=== PATIENT | male | born 1945 | race Caucasian/White ===

== ENCOUNTER 2018-07-07 23:23 | Inpatient (IN) ==
[2018-07-08] MEDS ORDERED: NORCO-7.5 PO ONE (00:18)
[2018-07-08 00:48] LABS: ALBUMIN 4.2 g/dL (3.5-5.0); CALCIUM 9.7 mg/dL (8.8-10.2); CREATININE 1.3 mg/dL (0.7-1.2); POTASSIUM 4.6 mmol/L (3.5-5.1); TOTAL BILIRUBIN 0.5 mg/dL (0.20-1.00)
[2018-07-08 00:56] LABS: BASO# 0.06 X1000 (0.0-0.2); BASO% 0.3 % (0.0-0.8); EOS% 0.5 % (0.0-10.0); HEMATOCRIT 45.6 % (42.0-52.0); HEMOGLOBIN 15.4 g/dL (14.0-18.0); IMM GRAN# 0.15 X1000 (0.0-0.04); IMM GRAN% 0.7 % (0.0-0.5); LYMPH# 10.24 X1000 (1.2-3.4); LYMPH% 47.3 % (20.5-51.1); MCH 32.6 PG (27-31); MCHC 33.8 g/dL (33-37); MCV 96.4 FL (81-99); MONO# 1.07 X1000 (0.11-0.59); MONO% 4.9 % (1.7-9.3); MPV 9.4 FL (7.4-10.4); NEUT# 10.05 X1000 (1.4-6.5); NEUT% 46.3 % (42.2-75.2); PLT 473 X1000 (130-400); RBC 4.73 XMIL (4.7-6.1); RDW 16.3 % (11.5-14.5); WBC 21.67 X1000 (4.8-10.8)
[2018-07-08] MEDS ORDERED: NS 1,000 ML IV ONE ×2 (01:04→04:37)
[2018-07-08] MEDS ORDERED: ROCEPHIN 1 GM in NS 50 ML IV ONE (03:01)
[2018-07-08] MEDS ORDERED: ZOFRAN ODT PO PRN (04:37)
--- NOTE | 2018-07-08 04:37 | PROVIDER DOCUMENTATION ---
This chart was entered by Jyothi Latham Scribe, acting as scribe for Guzman Bocanegra DO. HPI-Male Problem - General Chief Complaint: Flank Pain Stated Complaint: FLANK PAIN Time Seen by Provider: 07/07/18 23:31 Source: patient Allergies/Adverse Reactions: Patient Allergies Allergy/AdvReac Type Severity Reaction Status Date / Time Penicillins Allergy Mild ANAPHYLAXIS Verified 07/08/18 03:27 Home Medications: Home Medication List Medication Instructions Recorded Confirmed Last Taken Type Aspirin 81 mg PO DAILY 03/19/12 07/08/18 02/14/17 08:00 History Esomeprazole [Nexium] 40 mg PO DAILY 03/19/12 07/08/18 02/14/17 08:00 History Fenofibrate 160 mg PO DAILY 03/19/12 07/08/18 02/14/17 08:00 History Simvastatin 40 mg PO DAILY 03/19/12 07/08/18 02/14/17 08:00 History Albuterol Sulfate 2.5 mg IH BID 02/15/17 07/08/18 02/14/17 21:00 History Apixaban [Eliquis] 5 mg PO BID 02/15/17 07/08/18 02/14/17 08:00 History Arformoterol Neb [Brovana Neb] 15 microgm INH RTQ12H 02/15/17 07/08/18 02/14/17 21:00 History Budesonide 0.5 mg IH DAILY 02/15/17 07/08/18 02/14/17 17:00 History Digoxin 125 mcg PO QAM 02/15/17 07/08/18 02/14/17 08:00 History Fluticasone/Vilanterol [Breo 1 each IH DAILY 02/15/17 07/08/18 02/14/17 08:00 History Ellipta 200-25 Mcg INH] Furosemide [Lasix] 40 mg PO DAILY 02/15/17 07/08/18 02/14/17 08:00 History Tiotropium [place] Inhaler 18 mcg IH DAILY 30 Days #120 02/22/17 07/08/18 Unknow n Rx [Spiriva] inhaler Diltiazem HCl [Diltiazem 24Hr ER] 360 mg PO DAILY 05/15/18 07/08/18 Unknown History Losartan Potassium 100 mg PO DAILY 05/15/18 07/08/18 Unknown History Metoprolol [Lopressor] 50 mg PO DAILY 05/15/18 07/08/18 Unknown History Spironolactone 25 mg PO DAILY 05/15/18 07/08/18 Unknown History Albuterol Sulfate [Ventolin Hfa] 90 mcg INH DAILY 07/08/18 07/08/18 Unknown History Doxycycline Hyclate 100 mg PO DAILY 07/08/18 07/08/18 Unknown History Fluticasone/Vilanterol [Breo 200 mcg INH DAILY 07/08/18 07/08/18 Unknown History Ellipta 200-25 Mcg INH] Guaifenesin/Codeine Phosphate 118 ml PO DAILY 07/08/18 07/08/18 Unknown History [Virtussin AC Liquid] Thonzylamine/Phenylephrine/Dm 473 ml PO DAILY 07/08/18 07/08/18 Unknown History [Poly-Hist Dm Liquid] Tiotropium [place] Inhaler 18 mcg INH DAILY 07/08/18 07/08/18 Unknown History [Spiriva] - History of Present Illness-Male Nature of Presenting Problem: 72 yompresents to ED c/o left flank pain, since yesterday. Pt denies urinary p ain, nausea, vomiting or diarrhea. Pt has hx of HTN, Afib, GERD and COPD. Location of Complaint: reports: left flank Radiation: reports: none Quality of Pain: reports: aching Severity in ED: reports: moderate Onset/Duration: reports: 24 hours ago Timing: reports: still present Urinary Symptoms: reports: no symptoms Review of Systems - Adult - REVIEW OF SYSTEMS - ADULT Constitutional: reports: see HPI. denies: chills, fever, fatique Eyes: reports: no symptoms reported Ears, Nose, Mouth & Throat: reports: see HPI, hoarseness. denies: sinus problem, nose pain Cardiovascular: reports: no symptoms reported Respiratory: reports: no symptoms reported Gastrointestinal: reports: no symptoms reported Genitourinary: reports: see HPI, flank pain. denies: dysuria, urgency Musculoskeletal: reports: no symptoms reported Integumentary: reports: no symptoms reported Neurological: reports: no symptoms reported Psychiatric: reports: no symptoms reported Endocrine: reports: no symptoms reported Hematologic/Lymphatic: reports: no symptoms reported Allergic/Immunologic: reports: no symptoms reported All Other Systems: Reviewed and Negative Past History - Adult - PAST MEDICAL HISTORY-ADULT Review of Records: reports: Nursing Assessment Review, Medications Reviewed, Social history reviewed & non-contributory. Major Childhood Illnesses: reports: denies history Cardiovascular: reports: A-Fib, HTN, hyperlipidemia Respiratory: reports: COPD Gastrointestinal: reports: denies history Obstetrical/Gynecological: reports: denies history Genitourinary: reports: denies history Musculoskeletal: reports: arthritis Neurological: reports: denies history Psychiatric: reports: denies history Endocrine/Immune: reports: denies history Other Conditions: reports: denies history - PRIOR SURGERIES/PROCEDURES Surgical/Procedure History: reports: cholecystectomy - IMMUNIZATION STATUS Childhood Immunizations: See Nurse Assessment Flu Vaccine: See Nurse Assessment - FAMILY HISTORY Family History: reviewed, not pertinent - SOCIAL HISTORY Smoking: denies Physical Exam-General - PHYSICAL EXAM-ADULT Initial Vital Signs Reviewed: Yes - CONSTITUTIONAL General Appearance: appears well, alert. negative: anxious - EYES Eyes: PERRL/EOMI, pink conjunctivae. negative: photophobia - HEAD, EARS, NOSE, MOUTH & THROAT HENMT: moist mucous membranes, normal ENT inspection. negative: angioedema - NECK Neck: non-tender, full range of motion, supple, normal inspection. negative: Brudzinski's sign, carotid bruit - RESPIRATORY Respiratory: decreased breath sounds (bilaterally), crackles (left), wheezing (left) - CARDIOVASCULAR Cardiovascular: normal peripheral pulses, no edema, no gallop, no JVD, no murmur , irregularly irregular. negative: bradycardia, tachycardia - GASTROINTESTINAL (ABDOMEN) Abdominal Exam: normal bowel sounds, non tender, soft, no organomegaly. negative: rigid, rebound, tenderness - LYMPHATIC Lymphatic: no adenopathy. negative: striations - MUSCULOSKELETAL Back Exam: CVA tenderness (left), other (left flank pain) Extremity: normal range of motion, normal inspection. negative: deformity - SKIN Integumentary: normal color, normal turgor, warm/dry. 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 negative: facial droop, focal weakness - PSYCHIATRIC Psych/Mental Status: normal mood/affect, normal thought content, normal thought process, oriented x 3. negative: anxious Progress - PLAN OF CARE/RESULTS Progress/Plan/Lab Results: Vital Signs - 8 hr 07/07/18 23:28 Temperature 97.6 F Pulse Rate 90 Respiratory Rate 20 Blood Pressure 110/56 O2 Sat by Pulse Oximetry 94 L Laboratory Results - last 24 hr 07/08/18 07/08/18 07/08/18 00:07 00:07 00:07 WBC 21.67 H RBC 4.73 Hgb 15.4 Hct 45.6 MCV 96.4 MCH 32.6 H MCHC 33.8 RDW Std Deviation 16.3 H Plt Count 473 H MPV 9.4 Immature Gran % (Auto) 0.7 H Neut % (Auto) 46.3 Lymph % (Auto) 47.3 [place] % (Auto) 4.9 Eos % (Auto) 0.5 Baso % (Auto) 0.3 Immature Gran # (Auto) 0.15 H Neut # (Auto) 10.05 H Lymph # (Auto) 10.24 H [place] # (Auto) 1.07 H Eos # (Auto) 0.10 Baso # (Auto) 0.06 Sodium 135 L Potassium 4.6 Chloride 100 Carbon Dioxide 23 L Anion Gap 13 BUN 27 H Creatinine 1.3 H Estimated GFR/1.73 m2 54 BUN/Creatinine Ratio 21 Glucose 115 H Calculated Osmolality 276 Calcium 9.7 Total Bilirubin 0.50 AST 17 ALT 23 Alkaline Phosphatase 59 Total Protein 7.0 Albumin 4.2 Globulin 3.0 Albumin/Globulin Ratio 2.0 Monoscreen NEGATIVE Orders Category Date Time Status CHEST-PORTABLE [RAD] Stat Exams 07/08/18 03:[address] ABD/PELVIS W/IV CONT ONLY [CT] Stat Exams 07/08/18 01:05 Taken KUB ABDOMEN [RAD] Stat Exams 07/08/18 00:17 Taken LUMBAR SPINE 2-VIEWS [RAD] Stat Exams 07/08/18 00:17 Taken CBC WITH ELECTRONIC DIFF [HEME] Stat Lab 07/08/18 00:07 Completed COMPREHENSIVE METABOLIC PANEL [CHEM] Stat Lab 07/08/18 00:07 Completed MONO SCREEN [SERO] Stat Lab 07/08/18 00:07 Completed 0.9% Sodium Chloride Inj [Ns] 1,000 ml Med 07/08/18 01:04 Discontinued IV 999 mls/hr CefTRIAXONE [Rocephin] 1 gm Med 07/08/18 03:01 Discontinued 0.9% Sodium Chloride Inj [Ns] 50 ml IV NOW Hydrocodone/APAP 7.5 mg/325 mg [[place]-7.5] Med 07/08/18 00:18 Discontinued 1 each PO NOW ONE Result Diagrams: 07/08/18 00:07 07/08/18 00:07 - REASSESSMENT Reassessment #1 Status: improving (WITH NORCO 7.5 DISCUSSED LABS/CT-SCAN WITH PATIENT AND AGREES TO ADMISSION) - CONSULTS/PCP/HOSPITALIST Notification #1 *Consult/PCP/Hospitalist*: DR BARONE Time Discussed: 04:31 Departure - Departure Date of Disposition Decision: 07/08/18 Time of Disposition Decision: 04:32 DIAGNOSIS: Abdominal wall mass of left flank, Diverticulosis of colon, DJD (degenerative joint disease), lumbosacral, Atrial fibrillation, chronic, COPD with exacerbation Leukocytosis Qualifiers: Leukocytosis type: lymphocytosis Qualified Code(s): D72.820 - Lymphocytosis (symptomatic) Disposition: ADMITTED INPATIENT 09 Certified Medical Emergency: Emergent Condition: Stable Referrals and Follow-Ups: Ja Chan DO [Primary Care Provider] - - Critical Care Note This patient required my direct & personal management of CC.: No Attestation - Physician/ CECIL Attestation Patient care was provided by Advanced Practice Provider:: No The physician spent face to face time with patient:: Yes Advanced Practice Provider documentation review:: Supervising physician onsite and consulted in the evaluation and care of this patient. The physician did have a face to face encounter with the patient. This chart was documented by the indicated scribe, (Jyothi Latham Scribe) and accurately reflects the services I performed and decisions made by , Guzman Bocanegra DO, as attested by the provider's signature.
[2018-07-08] MEDS: DUONEB (A & A) INH SCH ×4 (06:06→21:00)
--- NOTE | 2018-07-08 07:11 | Diag Imaging Result Doc PS360 ---
US SPLEEN (LIMITED) - 07/08/2018 INDICATION: SPLENIC MASS ON CT-SCAN TECHNIQUE: COMPARISON: CT abdomen and pelvis with contrast from earlier 07/08/2018 FINDINGS: There is a questionable 3 cm hypoechoic mass of the lower pole of the spleen. No fluid collections. The spleen measures 9.5 x 9.3 x 3.3 cm. No abnormal fluid collections. IMPRESSION: Questionable hypoechoic splenic mass. Electronically signed by Edward Varela 07/08/2018 7:08 AM
--- NOTE | 2018-07-08 07:17 | Diag Imaging Result Doc PS360 ---
CT ABD/PELVIS W/IV CONT ONLY - 07/08/2018 INDICATION: ABD PAIN 21K WBS COMPARISON: 04/19/2017 FINDINGS: The lung bases are clear and the heart size is normal. There are cholecystectomy clips. There has been slight decrease in size of a hypoenhancing mass in the lower pole of the spleen. This previously measured about 4.7 cm and now measures about 4 cm. This was also present in 2016 and 2011, although the apparent size has fluctuated from 3.1 to 4.7 cm. Stable bulkiness of the adrenal glands. Stable diverticulosis of the colon. No bowel obstruction or inflammation. Urinary bladder, prostate, and rectum are normal. Stable vascular disease of the aorta and its pelvic branches. There are moderate degenerative changes of the spine. No acute or suspicious bony lesion. IMPRESSION: 1. 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 On the follow-up ultrasound this was subtle and hypoechoic. Most likely a benign density such as a hemangioma. 2. Otherwise no acute process or change from prior exams. This exam was performed using automated exposure control, adjustment of mA or kV according to patient size, and/or use of iterative reconstruction technique Electronically signed by Edward Varela 07/08/2018 7:15 AM
--- NOTE | 2018-07-08 07:18 | Diag Imaging Result Doc PS360 ---
KUB ABDOMEN - 07/08/2018 INDICATION: PAIN COMPARISON: 02/21/2017 FINDINGS: There is a nonobstructive bowel gas pattern. No free air or abdominal calcifications. There are stable surgical clips in the right upper quadrant. No constipation. IMPRESSION: No acute disease. Electronically signed by Edward Varela 07/08/2018 7:16 AM
--- NOTE | 2018-07-08 07:19 | Diag Imaging Result Doc PS360 ---
LUMBAR SPINE 2-VIEWS - 07/08/2018 INDICATION: PAIN TECHNIQUE: COMPARISON: None FINDINGS: Alignment is anatomic. No fracture or subluxation. There is advanced spondylosis throughout the thoracic and lumbar spine. There is advanced degeneration of the sacroiliac joints. There is advanced vascular calcification of the abdominal aorta. IMPRESSION: Advanced chronic changes. No fracture or subluxation. Electronically signed by Edward Varela 07/08/2018 7:17 AM
--- NOTE | 2018-07-08 07:44 | Diag Imaging Result Doc PS360 ---
CHEST-PORTABLE - 07/08/2018 INDICATION: COUGH COMPARISON: 05/17/2018 FINDINGS: The lungs are normally expanded and clear. Heart size and mediastinal contours are normal. No pneumothorax or pleural effusion. IMPRESSION: Negative exam. Electronically signed by Edward Varela 07/08/2018 7:41 AM
[2018-07-08] MEDS: NORCO-7.5 PO PRN ×2 (09:54→18:55)
--- NOTE | 2018-07-08 14:59 | Diag Imaging Result Doc PS360 ---
FOOT COMPLETE LEFT - 07/08/2018 INDICATION: pain, redness TECHNIQUE: Three views COMPARISON: None FINDINGS: Bones are intact and normally aligned. There are advanced degenerative changes at the mid tarsal joints, and the base of the great toe. No fractures or bony erosions. There is significant pedal edema about the ankle and foot, mainly at the forefoot. No soft tissue gas. IMPRESSION: Nonspecific findings. Electronically signed by Edward Varela 07/08/2018 2:56 PM
--- NOTE | 2018-07-08 15:38 | HISTORY AND PHYSICAL ---
CHIEF COMPLAINT: Left flank pain. HISTORY OF PRESENT ILLNESS: This is a 72-year-old gentleman who presented to the emergency room complaining of left-sided back pain. He states the pain was a 10/10 on sitting or lying but with standing the pain does relieve. He does state that he has a history of chronic back pain having multiple surgeries, although this pain does feel different. He denied any fevers or chills, nausea, vomiting, diarrhea, any hematuria, dysuria. Mr. Kowalski states that he has felt bad over the last 6 weeks or so. He was hospitalized from May 15 to May 18 with E coli UTI and a COPD exacerbation. He stated that on discharge from the hospital he did feel somewhat better although over the last month he has had generalized weakness, sore throat, generalized body aches for which he has been treated with 7 days of Keflex, 7 days of doxycycline with no change in symptoms. He was found to have a white count of 21.6. He is afebrile. PAST MEDICAL HISTORY: Atrial fibrillation, hypertension, hyperlipidemia, COPD, arthritis. PAST SURGICAL HISTORY: Cholecystectomy. SOCIAL HISTORY: He denies alcohol, tobacco, or illicit drug use. ALLERGIES: Penicillin. HOME MEDICATIONS: A list will be obtained by the nursing staff and once verified will review and restart as appropriate. REVIEW OF SYSTEMS: Discussed with patient with pertinent positives stated in the HPI. He denied any syncope or dizziness, any chest pain, palpitations, shortness of breath, cough, fever, chills, any nausea, vomiting, diarrhea, constipation, black or bloody vomitus or stools, any hematuria, dysuria, frequency, urgency. PHYSICAL EXAMINATION: GENERAL: This is a 72-year-old gentleman who is lying in the bed in no distress. VITAL SIGNS: Blood pressure is 111/51 with a heart rate of 72, respirations are 18, temperature is 97.5 degrees oral with O2 saturation 96-99% on 2 L nasal cannula. HEENT: Head is normocephalic, atraumatic. Mucous membranes are moist. NECK: Supple. Trachea midline. CARDIOVASCULAR: Regular rate and rhythm. S1 and S2 appreciated. CARDIOVASCULAR: Irregularly irregular rate and rhythm. S1, S2 appreciated. No murmur. He has bilateral lower extremity edema 2 to 3+ pitting, has signs of venous stasis on bilateral shins with peripheral pulses palpable x4 extremities, calves are nontender to palpation. GASTROINTESTINAL: Soft, nontender, nondistended. Bowel sounds in all 4 quadrants. PULMONARY: Breath sounds are unlabored. He does have some expiratory wheezing throughout. Chest rises and falls symmetric respiration. NEUROLOGIC: He is alert, oriented x3. SKIN: Warm and dry. ASSESSMENT AND PLAN: 1. Chronic obstructive pulmonary disease acute exacerbation. He will be given supplemental oxygen with DuoNeb q.4 hours with q.2 hours p.r.n., use steroids to taper. 2. Leukocytosis. The patient has been on antibiotics twice in the last 20 days. We will go ahead and draw blood cultures x2. Will obtain a urine culture as well as urinalysis. 3. Hypertension. Will identify his home medications and continue these as appropriate. 4. Acute kidney injury. We will gently hydrate and follow labs. 5. Left great toe pain, redness. The patient states that he has had left great toe and foot pain for the last week or 2 that has been increasing. He does have thickened nails. He does have redness noted to his left great toe as well as the tip just around the nail of his second toe. We will obtain an x-ray. 6. Splenic mass. In review of the patient's prior CT scans the patient had a hypoenhancing mass in the lower pole the spleen that was present in 2017 as well as 2011 with a size being 4.7 cm 2017 and 4 cm today. Followup ultrasound today reveals a hypoechoic mass that according to radiology is most likely benign density such as hemangioma. Dictated by HUMAIRA Thomas for Terence Pozo MD cc: HUMAIRA Thomas MD
[2018-07-08 16:23] LABS: URINE SOURCE VOIDED
[2018-07-08 16:27] LABS: BILIRUBIN URINE NEGATIVE (NEGATIVE); BLOOD URINE 4+ (NEGATIVE); CLARITY CLEAR (CLEAR); COLOR YELLOW; GLUCOSE URINE NEGATIVE (NEGATIVE); KETONE URINE NEGATIVE (NEGATIVE); LEUKOCYTES URINE NEGATIVE (NEGATIVE); NITRITE URINE NEGATIVE (NEGATIVE); PROTEIN URINE NEGATIVE (NEGATIVE); UROBILINOGEN URINE NORMAL
[2018-07-08 16:32] LABS: URINE RBC 20-40 /HPF (<10); URINE WBC <10 /HPF (<10)
[2018-07-08 16:33] LABS: URINE BACTERIA 1+ /HFP; URINE CAST NONE SEEN /LPF; URINE CRYSTAL NONE SEEN /HPF; URINE EPITHELIAL CELLS >10 /HPF (<10); URINE SMALL ROUND CELLS RENAL PRESENT; URINE YEAST NONE SEEN /HPF
--- NOTE | 2018-07-08 18:38 | HISTORY AND PHYSICAL ---
SUBJECTIVE: Patient seen and examined, presented the hospital with flank pain, now he is complaining of back pain. Patient unfortunately is extremely poor historian. He denies any shortness of breath currently. He is actually denying any flank pain. Points to his low back area where he has had 14 previous surgeries per the patient. Will admit patient the hospital due to his white count being elevated at 21, will observe. He did have a splenic mass that has been present for years and will follow. cc: Terence Pozo MD
[2018-07-08] MEDS: CARDIZEM CD PO SCH (18:49)
[2018-07-08] MEDS: ZOCOR PO SCH (18:49)
[2018-07-08] MEDS: LANOXIN PO SCH (18:49)
[2018-07-08] MEDS: LASIX PO SCH (18:49)
[2018-07-08] MEDS: LOPRESSOR PO SCH (18:49)
[2018-07-08] MEDS: ELIQUIS PO SCH (20:04)
[2018-07-09] MEDS: DUONEB (A & A) INH SCH ×4 (04:10→22:01)
[2018-07-09 07:03] LABS: HEMATOCRIT 45.3 % (42.0-52.0); MCH 31.9 PG (27-31); MCHC 33.1 g/dL (33-37); MCV 96.4 FL (81-99); MPV 9.6 FL (7.4-10.4); RBC 4.7 XMIL (4.7-6.1); RDW 16.1 % (11.5-14.5); WBC 17.4 X1000 (4.8-10.8)
[2018-07-09 07:36] LABS: AGAP 13; ALBUMIN 3.9 g/dL (3.5-5.0); ALKALINE PHOSPHATASE 44 U/L (32-122); BUN 18 mg/dL (8-22); CALCIUM 9.2 mg/dL (8.8-10.2); CHLORIDE 101 mmol/L (98-107); COSMO 278; ESTIMATED GFR > 60; GLUCOSE 99 mg/dL (70-104); GOT 20 U/L (10-34); GPT 21 U/L (10-44); MAGNESIUM 1.9 mg/dL (1.5-2.7); POTASSIUM 4.1 mmol/L (3.5-5.1); SODIUM 138 mmol/L (136-145); TCO2 24 mmol/L (25-35); TOTAL PROTEIN 6.6 g/dL (6.3-8.3)
[2018-07-09] MEDS ORDERED: LOFIBRA PO SCH (09:00)
[2018-07-09] MEDS: ELIQUIS PO SCH ×2 (09:20→20:05)
[2018-07-09] MEDS: CARDIZEM CD PO SCH (09:20)
[2018-07-09] MEDS: LANOXIN PO SCH (09:20)
[2018-07-09] MEDS: TRICOR PO SCH (09:20)
[2018-07-09] MEDS: LOPRESSOR PO SCH (09:22)
[2018-07-09] MEDS: COZAAR PO SCH (09:22)
[2018-07-09] MEDS: LASIX PO SCH (09:22)
[2018-07-09] MEDS: ZOCOR PO SCH (09:22)
[2018-07-09] MEDS: ASPIRIN PO SCH (09:22)
[2018-07-09] MEDS: NEXIUM PO SCH (09:22)
[2018-07-09] MEDS: ROCEPHIN 1 GM in NS 50 ML IV SCH (09:23)
[2018-07-09] MEDS: BREO ELLIPTA 200/25 MCG INH INH SCH (11:08)
[2018-07-09] MEDS: LASIX IV SCH ×2 (12:09→22:07)
--- NOTE | 2018-07-09 18:02 | PROGRESS NOTE ---
DATE: 07/09/2018 SUBJECTIVE: Patient notes overall he is feeling better. Denies any fevers or chills. Denies cough, congestion, or shortness of breath. States he has swelling in his lower extremities, but after I asked. He notes the swelling has been there for years. PHYSICAL EXAMINATION: Vital Signs: Temperature 97.4 degrees, pulse 67, respiratory rate 18, BP 119/57. General: Patient is awake, alert, currently in no distress. HEENT: Normocephalic, atraumatic. Neck: Supple. Cardiovascular: Regular rate. Chest: Clear. No crackles, no wheezing. Abdomen: Soft, nondistended, nontender. Extremities: Moves all extremities. 1+ edema in bilateral lower extremities. ASSESSMENT: 1. Chronic obstructive pulmonary disease with mild exacerbation. 2. Leukocytosis, improved. White count is down from 21 to 17. 3. Edema. We will continue Lasix. The patient certainly should consider lymphedema treatment as an outpatient. 4. Hypertension. 5. Acute kidney injury, resolved. 6. Acute hepatitis. AST and ALT both appear to be trending down. 7. Splenic mass, that is unchanged from 2017 and also appears in 2012. PLAN: Hopefully, the patient can discharge home over the next few days. We will continue to wean and follow clinical course. cc: Terence Pozo MD
[2018-07-09] MEDS ORDERED: DUONEB (A & A) ONE (18:09)
[2018-07-09] MEDS: ROBITUSSIN-DM PO PRN (18:59)
[2018-07-10] MEDS: DUONEB (A & A) INH SCH ×4 (03:14→21:36)
[2018-07-10] MEDS ORDERED: NS 50 ML ONE (06:07)
[2018-07-10 06:59] LABS: HEMATOCRIT 45.2 % (42.0-52.0); HEMOGLOBIN 15.4 g/dL (14.0-18.0); MCH 32.4 PG (27-31); MCHC 34.1 g/dL (33-37); MCV 95.2 FL (81-99); MPV 9.5 FL (7.4-10.4); RBC 4.75 XMIL (4.7-6.1); RDW 15.8 % (11.5-14.5); WBC 18.34 X1000 (4.8-10.8)
[2018-07-10 07:44] LABS: ALBUMIN 4.1 g/dL (3.5-5.0); CALCIUM 9.4 mg/dL (8.8-10.2); CREATININE 1.4 mg/dL (0.7-1.2); MAGNESIUM 1.8 mg/dL (1.5-2.7); POTASSIUM 4.2 mmol/L (3.5-5.1); TOTAL BILIRUBIN 0.6 mg/dL (0.20-1.00); TOTAL PROTEIN 6.9 g/dL (6.3-8.3)
[2018-07-10] MEDS: BREO ELLIPTA 200/25 MCG INH INH SCH (07:58)
[2018-07-10] MEDS: ROCEPHIN 1 GM in NS 50 ML IV SCH (08:22)
[2018-07-10] MEDS: CARDIZEM CD PO SCH (08:23)
[2018-07-10] MEDS: LANOXIN PO SCH (08:23)
[2018-07-10] MEDS: ELIQUIS PO SCH ×2 (08:23→20:06)
[2018-07-10] MEDS: COZAAR PO SCH (08:23)
[2018-07-10] MEDS: LOPRESSOR PO SCH (08:23)
[2018-07-10] MEDS: TRICOR PO SCH (08:23)
[2018-07-10] MEDS: ZOCOR PO SCH (08:23)
[2018-07-10] MEDS: NEXIUM PO SCH (08:23)
[2018-07-10] MEDS: ASPIRIN PO SCH (08:24)
[2018-07-10] MEDS ORDERED: NS 500 ML IV ONE (10:17)
--- NOTE | 2018-07-10 11:02 | PROGRESS NOTE ---
DATE: 07/10/2018 SUBJECTIVE: Patient is sitting up in bedside chair, talking with family member. No complaints voiced at this time. OBJECTIVE: Vital signs: Temperature 98.1 degrees, pulse 80, respirations 18, blood pressure 116/59, saturating 97% on 3 L via nasal cannula. HEMNT: Normocephalic, atraumatic. Normal ENT inspection. Oropharynx and nares are clear. Eyes: Pupils are equal, round, and reactive to light and accommodation. Neck: Normal inspection. Normal range of motion. Lungs were clear to auscultation bilaterally with equal lung expansion and chest wall movement. Heart: Regular rate and rhythm. No murmurs, rubs, or gallops. Abdomen: Soft, nontender, nondistended. Bowel sounds are present x4 quadrants. Musculoskeletal: Moves all extremities. He is noted to have 2+ pitting edema in bilateral lower extremities. LABORATORY DATA: White blood cell count of 18.34, hemoglobin 15.4, hematocrit 45.2, platelets 389,000. Sodium 136, potassium 4.2, chloride 98, CO2 of 23, BUN of 28, creatinine 1.4, glucose 122. ASSESSMENT: 1. Chronic obstructive pulmonary disease with mild exacerbation. 2. Leukocytosis. 3. Acute kidney injury. 4. Bilateral lower extremity edema. 5. Hypertension. PLAN: We were giving the patient some Lasix IV twice daily for 3 days, but it has worsened his kidney function so we are going to stop that. We will place him on a 500 mL bolus of normal saline x1 bag, start him back on his p.o. Lasix at 40 mg daily starting tomorrow. Encourage patient to keep bilateral lower extremities elevated as much as possible. There certainly could possibly be a lymphedema issue going on that could be worked up outpatient. We will continue his IV antibiotic. His white count had a little slight bump in it from 17.40 yesterday to 18.34. Tomorrow, we will recheck a CBC, BMP in the a.m. and hopefully discharge in the next 1 to 2 days. Dictated by HUMAIRA Hayward for Patrice Cordero MD Addendum: Patient seen and examined by myself. Agree with HUMAIRA note. It reflects my assessment and plan. Patient is feeling better. Will check BMP tomorrow. Will see how he does with Lasix. cc: HUMAIRA Hayward MD [facility]
--- NOTE | 2018-07-10 13:17 | EKG Report ---
Test Performed on : 07/10/2018 11:59:51 AM Test Reason : 2 second pause on tele. Blood Pressure : / mmHG Vent. Rate : 078 BPM Atrial Rate : 300 BPM P-R Int : 000 ms QRS Dur : 082 ms QT Int : 326 ms P-R-T Axes : 000 065 235 degrees QTc Int : 371 ms Atrial fibrillation. Cannot rule out Inferior infarct , age undetermined Abnormal ECG When compared with ECG of 15-MAY-2018 03:43, QRS duration has increased ST no longer elevated in Inferior leads Inverted T waves have replaced nonspecific T wave abnormality in Inferior leads Confirmed by Dave Strickland MD ([id number]) on 07/16/2018 2:06:18 PM
[2018-07-11] MEDS: DUONEB (A & A) INH SCH ×4 (03:13→22:09)
[2018-07-11 07:40] LABS: BASO# 0.04 X1000 (0.0-0.2); BASO% 0.3 % (0.0-0.8); EOS# 0.15 X1000 (0.0-0.7); HEMATOCRIT 40.8 % (42.0-52.0); HEMOGLOBIN 13.8 g/dL (14.0-18.0); IMM GRAN# 0.06 X1000 (0.0-0.04); IMM GRAN% 0.4 % (0.0-0.5); LYMPH% 40.6 % (20.5-51.1); MCH 32.5 PG (27-31); MCHC 33.8 g/dL (33-37); MCV 96.2 FL (81-99); MPV 9.6 FL (7.4-10.4); NEUT# 7.79 X1000 (1.4-6.5); NEUT% 51.7 % (42.2-75.2); PLT 370 X1000 (130-400); RBC 4.24 XMIL (4.7-6.1); RDW 15.6 % (11.5-14.5); WBC 15.04 X1000 (4.8-10.8)
[2018-07-11 07:51] LABS: AGAP 10; BUN 26 mg/dL (8-22); CALCIUM 9.2 mg/dL (8.8-10.2); CHLORIDE 101 mmol/L (98-107); COSMO 279; CREATININE 1.1 mg/dL (0.7-1.2); ESTIMATED GFR > 60; GLUCOSE 115 mg/dL (70-104); POTASSIUM 4.3 mmol/L (3.5-5.1); SODIUM 137 mmol/L (136-145); TCO2 26 mmol/L (25-35)
[2018-07-11] MEDS: BREO ELLIPTA 200/25 MCG INH INH SCH (08:20)
[2018-07-11] MEDS ORDERED: LASIX LIQUID PO SCH (09:00)
[2018-07-11] MEDS: CARDIZEM CD PO SCH (09:04)
[2018-07-11] MEDS: LOPRESSOR PO SCH (09:04)
[2018-07-11] MEDS: ROCEPHIN 1 GM in NS 50 ML IV SCH (09:04)
[2018-07-11] MEDS: ELIQUIS PO SCH ×2 (09:05→20:22)
[2018-07-11] MEDS: LANOXIN PO SCH (09:05)
[2018-07-11] MEDS: TRICOR PO SCH (09:05)
[2018-07-11] MEDS: NEXIUM PO SCH (09:05)
[2018-07-11] MEDS: LASIX PO SCH (09:05)
[2018-07-11] MEDS: ZOCOR PO SCH (09:05)
[2018-07-11] MEDS: ASPIRIN PO SCH (09:05)
--- NOTE | 2018-07-11 11:11 | PROGRESS NOTE ---
DATE: 07/11/2018 SUBJECTIVE: Patient reports feeling better. He is sitting in the chair. Reports less lower extremity swelling. OBJECTIVE: Vital Signs: Temperature degrees 97.6, heart rate 80, respiratory rate 18, blood pressure 129/49. O2 saturation 100% 3 L nasal cannula. General Examination: This is a chronically ill-appearing, 72-year-old male, lying in bed, in no acute distress. HEENT: Head is normocephalic. Atraumatic. Mucous membranes dry. Neck: No JVD noted. No carotid bruits. No lymphadenopathy. No thyromegaly. Cardiovascular: S1, S2 heard. No murmurs, gallops, or rubs. Regular rate and rhythm. Respiratory: Clear bilaterally to auscultation. No work of breathing or using accessory muscles. Abdomen: Soft, nontender to palpation. Bowel sounds present. No organomegaly. Extremities: 2+ pitting edema in both lower extremities up to the mid part of both legs. Neurological: Patient alert oriented x3. Moves 4 extremities. LABORATORY DATA: White cell count 15.04, hemoglobin 13.8, hematocrit 40.8, platelets 370,000. Normal BMP. ASSESSMENT AND PLAN: 1. Chronic obstructive pulmonary disease with mild exacerbation. Patient is breathing better. He is using 3 L of oxygen here in the hospital. That is basically what he uses at home. We will continue with breathing treatments. We will continue with same management. 2. Leukocytosis, most likely related to IV steroids. Those are getting better. We have to stop intravenous steroids. 3. Acute kidney injury, resolved. 4. Bilateral lower extremity edema. Patient is on Lasix. We will continue with the same management. 5. Hypertension. Blood pressure is under control. We will continue with the same medication. DISPOSITION: I think this patient continues to improve. The white cell count is close to normal and renal function continues to be stable. He can be discharged tomorrow. Patient requests at discharge to be arranged with home health services. We will honor his wishes. cc: Patrice Cordero MD
[2018-07-11] MEDS: ROBITUSSIN-DM PO PRN (13:23)
[2018-07-12] MEDS: DUONEB (A & A) INH SCH ×2 (03:05→11:21)
[2018-07-12 05:52] VITALS: BP 101/50
[2018-07-12 06:55] LABS: BASO# 0.05 X1000 (0.0-0.2); BASO% 0.3 % (0.0-0.8); EOS# 0.16 X1000 (0.0-0.7); HEMATOCRIT 44.1 % (42.0-52.0); HEMOGLOBIN 14.5 g/dL (14.0-18.0); IMM GRAN% 0.6 % (0.0-0.5); LYMPH% 41.6 % (20.5-51.1); MCH 31.7 PG (27-31); MCHC 32.9 g/dL (33-37); MCV 96.5 FL (81-99); MONO# 0.88 X1000 (0.11-0.59); MONO% 5.4 % (1.7-9.3); MPV 9.7 FL (7.4-10.4); NEUT# 8.34 X1000 (1.4-6.5); NEUT% 51.1 % (42.2-75.2); PLT 385 X1000 (130-400); RBC 4.57 XMIL (4.7-6.1); RDW 15.4 % (11.5-14.5); WBC 16.33 X1000 (4.8-10.8)
[2018-07-12 07:42] LABS: AGAP 12; BUN 25 mg/dL (8-22); CALCIUM 9.5 mg/dL (8.8-10.2); CHLORIDE 99 mmol/L (98-107); COSMO 275; CREATININE 1.1 mg/dL (0.7-1.2); ESTIMATED GFR > 60; GLUCOSE 108 mg/dL (70-104); POTASSIUM 4.4 mmol/L (3.5-5.1); SODIUM 135 mmol/L (136-145); TCO2 24 mmol/L (25-35)
[2018-07-12] MEDS: BREO ELLIPTA 200/25 MCG INH INH SCH (07:49)
[2018-07-12] MEDS: TRICOR PO SCH (09:20)
[2018-07-12] MEDS: CARDIZEM CD PO SCH (09:20)
[2018-07-12] MEDS: LANOXIN PO SCH (09:20)
[2018-07-12] MEDS: NEXIUM PO SCH (09:20)
[2018-07-12] MEDS: ZOCOR PO SCH (09:20)
[2018-07-12] MEDS: LASIX PO SCH (09:20)
[2018-07-12] MEDS: ELIQUIS PO SCH (09:20)
[2018-07-12] MEDS: ASPIRIN PO SCH (09:21)
[2018-07-12] MEDS: ROCEPHIN 1 GM in NS 50 ML IV SCH (09:21)
[2018-07-12] MEDS: LOPRESSOR PO SCH (09:25)
--- NOTE | 2018-07-12 15:17 | DISCHARGE SUMMARY ---
ADMISSION DATE: 07/08/2018 DISCHARGE DATE: 07/12/2018 PRIMARY CARE PHYSICIAN: Dr. Chan. ADMISSION DIAGNOSES: 1. An acute chronic obstructive pulmonary disease exacerbation. 2. Leukocytosis. 3. Hypertension. 4. Acute kidney injury. 5. Left great toe pain with redness. 6. A splenic mass. DISCHARGE DIAGNOSES: 1. Mild exacerbation of chronic obstructive pulmonary disease. 2. Leukocytosis, most likely secondary to steroids. 3. Bilateral lower extremity edema. 4. Hypertension. SUMMARY OF FINDINGS: This is a 72-year-old male who presented to the emergency room with left- sided back pain that he rated at 10/10 when he is sitting or lying, but standing relieved the pain. Stated he had felt bad over the last 6 weeks and had been hospitalized from May 15 to May 18 with an E coli UTI and COPD exacerbation that he felt better when he was discharged, but over the last month had had generalized weakness and sore throat, generalized body aches for which he had been treated for 7 days with Keflex and doxycycline. Was found to have a white count of 21.6 and was afebrile. He was placed on IV antibiotics, a steroid taper. He is using 3 L of oxygen, which is what he uses at home. We continued his breathing treatments, placed him on his Lasix, encouraged him to keep his legs elevated and is now felt that he can safely be discharged home. DISCHARGE MEDICATIONS: Include: 1. Eliquis 5 mg p.o. b.i.d. 2. Aspirin 81 mg p.o. daily. 3. Digoxin 125 mcg p.o. q.a.m. 4. Cardizem 360 mg p.o. daily. 5. Nexium 40 mg p.o. daily. 6. Fenofibrate 160 mg p.o. daily. 7. Breo Ellipta 200/25 mcg inhalation daily. 8. Lasix 40 mg p.o. daily, #30 with no refill. 9. [place] 7.5 one p.o. q.6 hours p.r.n., #20 with no refill. 10. Metoprolol 50 mg p.o. daily. 11. Simvastatin 40 mg p.o. daily. 12. Albuterol nebulizer b.i.d. 13. Brovana nebulizer q.12. 14. Cefdinir 300 mg p.o. daily, #20 with no refill. 15. Lasix 40 mg p.o. daily. 16. Robitussin DM 10 mL p.o. q.4 hours p.r.n. 17. Potassium 100 mg p.o. daily. FOLLOWUP: He will need to follow up with his primary care physician on 07/19/2018 at 10:30 a.m. TIME SPENT: 35 minutes. HUMAIRA Hayward, dictating for Dr. Robledo. Dictated by HUMAIRA Hayward for Patrice Cordero MD Addendum: Patient seen and examined by myself. Agree with HUMAIRA note. It reflects my assessment and plan. Patient is being discharged from hospital in stable condition. cc: HUMAIRA Hayward MD Joseph R. Dupper, ELSIEM DO CHRIS Byers
== END 2018-07-12 13:45 | disposition home or self-care (01) | DRG 815 ==
LOC: P.ED 23:23 → P.MEDSURG 07-08 05:09 → SUATTDRO 07-08 05:09
PROVIDERS: ATTEND Internal Medicine
CPT/HCPCS: 36415; 71010; 71045; 72100; 73630; 74000; 74018; 74177; 76705; 80048; 80053; 81001; 82948; 83735; 85025; 85027; 86308; 87040; 87088; 93005; 93010; 94640; 94761; 96361; 96365; 97163; 99285; A9270; J0696; J1940; J7030; J7040; Q9967; XXXXX

== ENCOUNTER 2019-01-28 23:17 | Inpatient (IN) ==
[2019-01-28] MEDS ORDERED: CARDIZEM ONE (23:48)
[2019-01-28] MEDS ORDERED: NS 1,000 ML IV ONE (23:53)
[2019-01-29 00:11] LABS: INFLUENZA A NEGATIVE (NEGATIVE); INFLUENZA B NEGATIVE (NEGATIVE)
[2019-01-29 00:11] LABS: BASO# 0.02 X1000 (0.0-0.2); BASO% 0.1 % (0.0-0.8); HEMATOCRIT 44.8 % (42.0-52.0); HEMOGLOBIN 14.8 g/dL (14.0-18.0); IMM GRAN# 0.17 X1000 (0.0-0.04); IMM GRAN% 0.6 % (0.0-0.5); LYMPH# 5.96 X1000 (1.2-3.4); LYMPH% 22.1 % (20.5-51.1); MCH 30.8 PG (27-31); MCV 93.1 FL (81-99); MONO# 0.28 X1000 (0.11-0.59); MPV 9.6 FL (7.4-10.4); NEUT# 20.55 X1000 (1.4-6.5); NEUT% 76.2 % (42.2-75.2); PLT 434 X1000 (130-400); RBC 4.81 XMIL (4.7-6.1); RDW 15.2 % (11.5-14.5); WBC 26.98 X1000 (4.8-10.8)
[2019-01-29] MEDS ORDERED: MAXIPIME 2 GM in NS 100 ML IV ONE (00:14)
[2019-01-29] MEDS ORDERED: NS 500 ML IV ONE (00:14)
[2019-01-29] MEDS ORDERED: NS 1,000 ML IV ONE ×2 (00:14→03:15)
[2019-01-29] MEDS ORDERED: VANCOMYCIN 1 GM/NS 1 GM/250 ML IVPB IV ONE (00:14)
[2019-01-29 00:22] LABS: INR 1.39; PROTIME 17.8 Seconds (11.0-16.0)
[2019-01-29 00:23] LABS: PTT 31.8 Seconds (22.3-41.8)
[2019-01-29 00:26] LABS: CREATININE 1.3 mg/dL (0.7-1.2); POTASSIUM 4.8 mmol/L (3.5-5.1); TOTAL BILIRUBIN 1.3 mg/dL (0.20-1.00)
[2019-01-29 00:27] LABS: BLOOD TYPE ARTERIAL; HCO3-(ACT) 23.2 mmoll (20.0-26.0); METHB 1.3 % (0.0-1.5); O2(CT) 18.5 mL/dL (15.0-23.0); O2HB 92.5 % (95.0-99.0); PCO2(98.6) 25 mmHg (35-45); PO2(98.6) 67 mmHg (60-100); SAMPLE BLOOD; SAO2 96.3 % (95.0-100.0); THB 14.2 g/dL (11.5-17.4)
[2019-01-29 00:29] LABS: ALLEN TEST YES; MODALITY CANNULA
[2019-01-29 00:34] LABS: BILIRUBIN URINE NEGATIVE (NEGATIVE); BLOOD URINE 1+ (NEGATIVE); CLARITY CLEAR (CLEAR); COLOR ORANGE; GLUCOSE URINE NEGATIVE (NEGATIVE); KETONE URINE TRACE mg/dL (NEGATIVE); LEUKOCYTES URINE TRACE (NEGATIVE); NITRITE URINE NEGATIVE (NEGATIVE); PROTEIN URINE TRACE mg/dL (NEGATIVE); UROBILINOGEN URINE 1 mg/dL
[2019-01-29 00:39] LABS: BANDS 9 % (0-1); LYMPHS 19 % (21-51); SEGS 68 % (42-75)
[2019-01-29 00:40] LABS: POIKILOCYTOSIS OCCASIONAL; POLYCHROM OCCASIONAL; STOMATOCYTES OCCASIONAL; TARGET CELLS OCCASIONAL
[2019-01-29 00:42] LABS: URINE WBC <10 /HPF (<10)
[2019-01-29 00:43] LABS: URINE BACTERIA 4+ /HFP; URINE EPITHELIAL CELLS <10 /HPF (<10); URINE RBC <10 /HPF (<10)
[2019-01-29 00:44] LABS: URINE SMALL ROUND CELLS RENAL PRESENT; URINE SOURCE CLEAN CATCH
--- NOTE | 2019-01-29 01:02 | PROVIDER DOCUMENTATION ---
This chart was entered by Karina Kwan Scribe, acting as scribe for Stanford Tavares MD. HPI-Abdominal Pain/GI Problem - General Chief Complaint: Abdominal Pain Stated Complaint: ABD/BACK PAIN Time Seen by Provider: 01/28/19 23:33 Source: patient Allergies/Adverse Reactions: Patient Allergies Allergy/AdvReac Type Severity Reaction Status Date / Time Penicillins Allergy Mild ANAPHYLAXIS Verified 01/28/19 23:26 Home Medications: Home Medication List Medication Instructions Recorded Confirmed Last Taken Type Aspirin 81 mg PO DAILY 03/19/12 01/29/19 02/14/17 08:00 History Esomeprazole [Nexium] 40 mg PO DAILY 03/19/12 01/29/19 02/14/17 08:00 History Fenofibrate 160 mg PO DAILY 03/19/12 01/29/19 02/14/17 08:00 History Simvastatin 40 mg PO DAILY 03/19/12 01/29/19 02/14/17 08:00 History Albuterol Sulfate 2.5 mg IH BID 02/15/17 01/29/19 02/14/17 21:00 History Apixaban [Eliquis] 5 mg PO BID 02/15/17 01/29/19 02/14/17 08:00 History Arformoterol Neb [Brovana Neb] 15 microgm INH RTQ12H 02/15/17 01/29/19 02/14/17 21:00 History Budesonide 0.5 mg IH DAILY 02/15/17 01/29/19 02/14/17 17:00 History Digoxin 125 mcg PO QAM 02/15/17 01/29/19 02/14/17 08:00 History Fluticasone/Vilanterol [Breo 1 each IH DAILY 02/15/17 01/29/19 02/14/17 08:00 History Ellipta 200-25 Mcg INH] Furosemide [Lasix] 40 mg PO DAILY 02/15/17 01/29/19 02/14/17 08:00 History Diltiazem HCl [Diltiazem 24Hr ER] 360 mg PO DAILY 05/15/18 01/29/19 Unknown History Losartan Potassium 100 mg PO DAILY 05/15/18 01/29/19 Unknown History Metoprolol [Lopressor] 50 mg PO DAILY 05/15/18 01/29/19 Unknown History Spironolactone 25 mg PO DAILY 05/15/18 01/29/19 Unknown History Albuterol Sulfate [Ventolin Hfa] 90 mcg INH DAILY 07/08/18 01/29/19 Unknown History Fluticasone/Vilanterol [Breo 200 mcg INH DAILY 07/08/18 01/29/19 Unknown History Ellipta 200-25 Mcg INH] Tiotropium [place] Inhaler 18 mcg INH DAILY 07/08/18 01/29/19 Unknown History [Spiriva] CefDINIR [Omnicef] 300 mg PO DAILY #20 cap 07/12/18 01/29/19 Unknown Rx Furosemide [Lasix] 40 mg PO DAILY #30 tab 07/12/18 01/29/19 Unknown Rx Guaifenesin/Dm [Robitussin-Dm] 10 ml PO Q4H PRN PRN bottle 07/12/18 01/29/19 Unknown Rx Hydrocodone/APAP 7.5 mg/325 mg 1 ea PO Q6H PRN PRN #20 tab 07/12/18 01/29/19 Unknown Rx [[place]-7.5] - History of Present Illness-ABD Nature of Presenting Problems: Pt is a 73 yom who presents to the ED with a CC of abd pain. Pt states that the pain began this morning. Pt describes the pain as sharp. Pt reports coughing(yellow subst), nausea, and diarrhea. Pt reports afib and COPD. Pt denies any pain radiation or SOB. Abdominal Pain Onset Location: reports: LLQ Pain Radiation: reports: no radiation Quality of Pain: reports: sharp Severity in ED: reports: mild Onset/Duration: reports: this morning Timing: reports: still present, changing over time Activities at Onset: reports: none Exposure to sick contacts?: No Modifying Factors: improves with: nothing Associated Symptoms: reports: cough, diarrhea, nausea Last BM: unsure Dark Stools Present?: reports: none noticed Rectal Bleeding: reports: none Rectal Pain: reports: none Bruising or Bleeding Gums?: No Similar Symptoms Previously?: No Recently seen or treated by another doctor?: No Review of Systems - Adult - REVIEW OF SYSTEMS - ADULT Constitutional: reports: see HPI Eyes: reports: no symptoms reported Ears, Nose, Mouth & Throat: reports: no symptoms reported Cardiovascular: reports: no symptoms reported Respiratory: reports: see HPI, cough Gastrointestinal: reports: see HPI, abdominal pain (LLQ), diarrhea, nausea Genitourinary: reports: no symptoms reported Musculoskeletal: reports: no symptoms reported Integumentary: reports: no symptoms reported Neurological: reports: no symptoms reported Psychiatric: reports: no symptoms reported Endocrine: reports: no symptoms reported Hematologic/Lymphatic: reports: no symptoms reported Allergic/Immunologic: reports: no symptoms reported All Other Systems: Reviewed and Negative Past History - Adult - PAST MEDICAL HISTORY-ADULT Review of Records: reports: Medications Reviewed Major Childhood Illnesses: reports: denies history Cardiovascular: reports: A-Fib, HTN, hyperlipidemia Respiratory: reports: COPD Gastrointestinal: reports: denies history Genitourinary: reports: denies history Musculoskeletal: reports: arthritis Neurological: reports: denies history Psychiatric: reports: denies history Endocrine/Immune: reports: denies history Other Conditions: reports: denies history - PRIOR SURGERIES/PROCEDURES Surgical/Procedure History: reports: cholecystectomy - IMMUNIZATION STATUS Childhood Immunizations: See Nurse Assessment Flu Vaccine: See Nurse Assessment - FAMILY HISTORY Family History: reviewed, not pertinent - SOCIAL HISTORY Smoking: cigarettes Provider spent 3-5 mins advising pt. on dangers of tobacco.: Discussed manners to quit use, and f/u contacts for add'l counseling. Substance Use: denies Living Situation: family Physical Exam-General - PHYSICAL EXAM-ADULT Initial Vital Signs Reviewed: Yes - CONSTITUTIONAL General Appearance: alert, no apparent distress - EYES Eyes: PERRL/EOMI, pink conjunctivae. negative: sclera injected, scleral icterus, sunken eyes - HEAD, EARS, NOSE, MOUTH & THROAT HENMT: normocephalic/atraumatic, moist mucous membranes - NECK Neck: non-tender, full range of motion, supple, normal inspection - RESPIRATORY Respiratory: chest non-tender, lungs clear. negative: normal breath sounds (decreased), crackles, rhonchi - CARDIOVASCULAR Cardiovascular: normal peripheral pulses, regular rate, rhythm - CHEST (BREASTS) Chest/Breast: no tenderness - GASTROINTESTINAL (ABDOMEN) Abdominal Exam: normal bowel sounds, soft, tenderness (base of LLQ) - MUSCULOSKELETAL Back Exam: normal inspection Extremity: normal range of motion, non-tender, normal inspection - SKIN Integumentary: normal color, normal turgor, warm/dry. negative: ecchymosis, erythema - PSYCHIATRIC Psych/Mental Status: normal mood/affect, normal thought content, normal thought process, oriented x 3 Progress - PLAN OF CARE/RESULTS Progress/Plan/Lab Results: Vital Signs - 8 hr 01/28/19 23:21 Temperature 98.0 F Pulse Rate 93 H Respiratory Rate 24 Blood Pressure 151/66 O2 Sat by Pulse Oximetry 96 Orders Category Date Time Status Cardiac Monitoring DIRECTED Care 01/28/19 23:54 Active IV Insertion ORDERED Care 01/28/19 23:54 Active Notify MD of + Sepsis Screen NOW Care 01/28/19 23:54 Active CHEST-1 VIEW [RAD] Stat Exams 01/28/19 23:58 Ordered CHEST-2 VIEWS [RAD] Stat Exams 01/28/19 23:42 Stop Req BLOOD CULTURE [BLDCUL] Stat Lab 01/28/19 23:52 Ordered BLOOD CULTURE [BLDCUL] Stat Lab 01/28/19 23:55 Ordered CBC WITH DIFF [HEME] Stat Lab 01/28/19 23:55 Ordered CK PROFILE [SP CHEM] Stat Lab 01/28/19 23:55 Ordered COMPREHENSIVE METABOLIC PANEL [CHEM] Stat Lab 01/28/19 23:55 Ordered DIGOXIN [TDM] Stat Lab 01/28/19 23:48 Received Flu [INFLUENZA SCREEN PL] Stat Lab 01/28/19 23:30 Ordered LACTATE, PLASMA [CHEM] Q3H Lab 01/28/19 23:48 Received LACTATE, PLASMA [CHEM] Q3H Lab 01/29/19 02:54 Uncollected LACTATE, PLASMA [CHEM] Q3H Lab 01/29/19 05:54 Uncollected PROTIME WITH INR [COAG] Stat Lab 01/28/19 23:55 Ordered PTT [COAG] Stat Lab 01/28/19 23:55 Ordered TROPONIN T Stat Lab 01/28/19 23:[address] W/POSS RFLX CULT [URINALYSIS] Stat Lab 01/28/19 23:55 Ordered strep [DIRECT STREP PL] Stat Lab 01/28/19 23:30 Ordered 0.9% Sodium Chloride Inj [Ns] 1,000 ml Med 01/28/19 23:53 Active IV 999 mls/hr Diltiazem [Cardizem] Med 01/28/19 23:48 Discontinued 25 mg .ROUTE .STK-MED ONE Oxygen Device Stat Oth 11/10/19 23:54 Active Result Diagrams: 01/28/19 23:48 01/28/19 23:48 - REASSESSMENT Reassessment #1 Time Reassessed: 23:55 Status: worsening Reassessment Comment: When blood was being drawn 02 & BP dropped, heart rate increased - EKG 1 Time of EKG reading by physician:: 23:50 EKG Read and Signed by:: Stanford Tavares EKG Interpretation (*Must complete 3 of following elements*): Abnormal (Rate 155 Rhythm- Atrial fibrillation with rapid ventricular response ST & T wave abnormality, consider inferolateral ischemia) - XRAY 1 XRAY Study: Chest Impression: Abnormal (left lower pneumonia) - CONSULTS/PCP/HOSPITALIST Notification #1 *Consult/PCP/Hospitalist*: Nick Time Discussed: 01:00 Reason/Comments: Discuss admission Consult Disposition: Admit ( accepted) Departure - Departure Date of Disposition Decision: 01/29/19 Time of Disposition Decision: 00:17 DIAGNOSIS: Septic shock, Atrial fibrillation with RVR Left lower lobe pneumonia Qualifiers: Pneumonia type: due to unspecified organism Qualified Code(s): J18.1 - Lobar pneumonia, unspecified organism Disposition: ADMITTED INPATIENT 09 Certified Medical Emergency: Emergent Condition: Stable Referrals and Follow-Ups: Ja Chan DO [Primary Care Provider] - - Critical Care Note This patient required my direct & personal management of CC.: Yes Attestation - Physician/ CECIL Attestation Patient care was provided by Advanced Practice Provider:: No The physician spent face to face time with patient:: Yes Advanced Practice Provider documentation review:: Supervising physician onsite and consulted in the evaluation and care of this patient. The physician did have a face to face encounter with the patient. This chart was documented by the indicated scribe, (Karina Kwan Scribe) and accurately reflects the services I performed and decisions made by me, Stanford Tavares MD, as attested by the provider's signature.
[2019-01-29] MEDS ORDERED: MORPHINE IV ONE (01:24)
[2019-01-29] MEDS ORDERED: ZOFRAN IV ONE (01:47)
[2019-01-29] MEDS ORDERED: NS 1,000 ML ONE (01:56)
[2019-01-29] MEDS ORDERED: LEVOPHED ONE (02:00)
[2019-01-29] MEDS ORDERED: D5 1/2 NS 250 ML ONE (02:01)
[2019-01-29] MEDS ORDERED: LEVOPHED 8 MG in D5 1/2 NS 250 ML IV SCH ×2 (02:15→03:00)
[2019-01-29] MEDS ORDERED: ZOFRAN IV PRN (03:48)
[2019-01-29] MEDS ORDERED: TYLENOL PO PRN (03:48)
[2019-01-29] MEDS ORDERED: VANCOMYCIN IV PER PHARMACY MISC SCH (03:48)
[2019-01-29] MEDS ORDERED: LOPRESSOR IV ONE (04:20)
[2019-01-29] MEDS ORDERED: LANOXIN IV ONE (04:20)
[2019-01-29] MEDS ORDERED: CARDIZEM PO ONE (04:20)
[2019-01-29] MEDS: NS 1,000 ML IV SCH ×2 (04:50→12:44)
[2019-01-29] MEDS: DOXYCYCLINE 100 MG in NS 250 ML IV SCH ×2 (04:50→18:02)
--- NOTE | 2019-01-29 05:45 | HISTORY AND PHYSICAL ---
CHIEF COMPLAINT: Back pain, abdominal pain and cough. HISTORY OF PRESENT ILLNESS: This is a 73-year-old male who comes in with cough, yellow sputum, nausea and diarrhea. He reports he has had the cough for around 3 months, but the diarrhea and nausea have started in the last day. He has atrial fibrillation and COPD along with hypertension and hyperlipidemia. He continues to smoke only 1-2 cigarettes per day. He originally went to [facility]. Chest x-ray showed a fairly large left lower lobe infiltrate. Laboratory data also showed leukocytosis and a possible urinary tract infection. At any rate, he will be treated for sepsis in the [facility] ICU. PAST MEDICAL HISTORY: Please see HPI. He also has arthritis. PREVIOUS SURGICAL HISTORY: Cholecystectomy. SOCIAL HISTORY: No alcohol or illicit drugs. One to two cigarettes per day. FAMILY HISTORY: Positive for hypertension. ALLERGIES: Penicillin. HOME MEDICATIONS: Cefdinir 300 mg p.o. daily, Breo Ellipta 200/25 of 200 mcg daily, Lasix 40 mg daily, Robitussin DM every 4 hours p.r.n., [place] 7.5 q.6 p.r.n., losartan potassium 100 mg daily, albuterol nebulizer b.i.d., albuterol inhaler p.r.n., Eliquis 5 mg p.o. b.i.d., Brovana nebulizer 15 mcg q.12, aspirin 81 mg daily, budesonide inhalation 0.5 mg daily, digoxin 125 mcg p.o. q.a.m., diltiazem 360 mg p.o. daily, Nexium 40 mg p.o. daily, fenofibrate 160 mg p.o. daily, metoprolol 50 mg p.o. daily, simvastatin 40 mg daily, spironolactone 25 mg p.o. daily, Spiriva 18 mcg inhalation daily. REVIEW OF SYSTEMS: Fourteen-point review of systems conducted with the patient. Pertinent positives listed above in the HPI. He denies any fever or chills. He did state that he is having urinary frequency, dysuria. All other systems were reviewed and negative. PHYSICAL EXAMINATION: VITAL SIGNS: Temperature 99, pulse 149, respirations 28, blood pressure 91/53, oxygen saturation 91% on 3 L nasal cannula. GENERAL: Pleasant 73-year-old male lying in the ICU bed. He is alert and oriented times 3, answers all questions appropriately. He is in no acute distress. HEENT: Head is atraumatic, normocephalic. Pupils equal, round, reactive to light. Extraocular eye movement is intact. Sclera is anicteric. Conjunctiva is pink. Oral mucosa is dry. NECK: Supple. No JVD. No thyromegaly. Trachea is midline. No cervical lymphadenopathy. CARDIAC: S1, S2 appreciated. No murmurs, gallops, rubs. LUNGS: Coarse crepitations noted throughout the left lung field. Mild expiratory wheeze. Decreased bilaterally. Prolonged expiratory phase. Symmetric rise and fall with respirations. ABDOMEN: Protuberant, soft, nondistended, nontender. Bowel sounds present all 4 quadrants, hyperactive. No pulsatile mass. No organomegaly. EXTREMITIES: No clubbing, cyanosis. Three-plus pitting edema bilateral lower extremities. One- plus pedal pulses bilaterally. GENITOURINARY: No bladder distention. [place] catheter in place draining clear, yellow urine. Otherwise deferred. NEUROLOGIC: Alert and oriented times 3. Cranial nerves 2 through 12 grossly intact. DIAGNOSTIC DATA: Chest x-ray shows a left lower lobe pneumonia. EKG shows atrial fibrillation with a rapid ventricular rate. LABORATORY DATA: WBC 26.98. Hemoglobin 14.8. Hematocrit 44.8. Platelet count 434. Nine band neutrophils. ABG: pH 7.50, pCO2 of 25, PO2 of 67, bicarbonate 23.2. This was on 2 L nasal cannula. Sodium 133. Potassium 4.8. Chloride 97. Carbon dioxide 23. BUN 28. Creatinine 1.3. Glucose 99. Urine: Four-plus bacteria, trace WBCs. ASSESSMENT: 1. Sepsis. 2. Left lower lobe pneumonia. 3. Atrial fibrillation with rapid ventricular rate. 4. Hypotension. 5. Chronic obstructive pulmonary disease. 6. History of hypertension. 7. Questionable urinary tract infection. PLAN: We will treat patient with broad spectrum antibiotics IV. Continue all of his inhaled steroids and bronchodilators. We will give patient IV metoprolol and digoxin now and restart his home medications to try to control his rapid ventricular rate. We will continue fluids. Smoking cessation was gone over with the patient. He states that he believes he will totally quit this time. The plan was gone over with the patient and the at the bedside. They were agreeable. Further recommendations per patient clinical course. CRITICAL CARE TIME: 30 Minutes. Dictated by HUMAIRA Pearl for Nasim Romero MD I have performed a face to face diagnostic evaluation. Labs/ Xrays- reviewed. Exam- Chest- rhonchi, CV- regular. A/P- Pneumonia, sepsis, Afib with RVR- Admit, Check blood cultures, IV ABX, monitor on telemetry, Digoxin, Cardilogy consult. Dr. Romero cc: HUMAIRA Pearl MD [facility]
[2019-01-29] MEDS ORDERED: VANCOMYCIN 1,750 MG in NS 250 ML IV ONE ×5 (06:00→08:30)
--- NOTE | 2019-01-29 06:26 | Diag Imaging Result Doc PS360 ---
CHEST-1 VIEW - 01/28/2019 INDICATION: dyspnea COMPARISON: 07/08/2018 FINDINGS: There is new dense consolidation in the left lower lobe. Heart size is normal. There is probably some faint infiltrate in the right lung base as well. IMPRESSION: Bilateral basilar infiltrates compatible with pneumonia. Electronically signed by Edward Varela 01/29/2019 6:23 AM
[2019-01-29] MEDS ORDERED: ALBUTEROL NEB INH SCH (07:30)
[2019-01-29] MEDS ORDERED: VENTOLIN HFA INH SCH (07:30)
--- NOTE | 2019-01-29 07:54 | EKG Report ---
Test Performed on : 01/28/2019 11:49:20 PM Test Reason : SEPSIS Blood Pressure : / mmHG Vent. Rate : 155 BPM Atrial Rate : 150 BPM P-R Int : 000 ms QRS Dur : 064 ms QT Int : 244 ms P-R-T Axes : 000 074 201 degrees QTc Int : 392 ms Atrial fibrillation. with rapid ventricular response. ST & T wave abnormality, consider inferolateral ischemia Abnormal ECG When compared with ECG of 10-JUL-2018 11:59, Vent. rate has increased BY [address] now depressed in Anterior leads Unconfirmed Result
[2019-01-29] MEDS: BREO ELLIPTA 200/25 MCG INH INH SCH (08:03)
[2019-01-29] MEDS: SPIRIVA INH SCH (08:03)
[2019-01-29] MEDS: PULMICORT INH SCH (08:03)
[2019-01-29] MEDS: CARDIZEM LA PO SCH (08:14)
[2019-01-29] MEDS: NEXIUM PO SCH (08:15)
[2019-01-29] MEDS: ASPIRIN PO SCH (08:15)
[2019-01-29] MEDS: TRICOR PO SCH (08:15)
[2019-01-29] MEDS: LANOXIN PO SCH (08:15)
[2019-01-29] MEDS: ELIQUIS PO SCH ×2 (08:15→21:13)
[2019-01-29] MEDS: ALDACTONE PO SCH (08:16)
[2019-01-29] MEDS: ZOCOR PO SCH (08:16)
[2019-01-29] MEDS ORDERED: LOPRESSOR PO SCH (09:00)
[2019-01-29] MEDS: BROVANA NEB INH SCH ×2 (09:29→19:09)
[2019-01-29] MEDS: ALBUTEROL NEB INH SCH ×4 (11:29→23:09)
[2019-01-29] MEDS: MAXIPIME 1 GM in NS 50 ML IV SCH (12:43)
--- NOTE | 2019-01-29 21:49 | PULMONOLOGY CONSULTATION ---
DATE: 01/29/2019 REQUESTING CLINICIAN: Dr. Robledo. REASON FOR CONSULTATION: Recurrent pneumonia. HISTORY OF PRESENT ILLNESS: Mr. Kowalski is a 73-year-old male with COPD, continued tobacco use, with chronic morning cough productive of sputum. He presented to the emergency room last evening with increased cough, increased sputum production, nausea, diarrhea, and some sharp abdominal pain. Chest x-ray was performed which revealed new consolidation at the left base, which was not present on 07/08/2018. He continues to cough raul colored sputum. His blood pressure decreased in the emergency room and he has required a fluid bolus and vasopressors. PAST MEDICAL HISTORY: 1. Chronic obstructive pulmonary disease. 2. Atrial fibrillation. 3. Dyslipidemia. 4. Hypertension. 5. Osteoarthritis. 6. History of appendicitis, requiring open appendectomy. 7. Status post cholecystitis and cholecystectomy. SOCIAL HISTORY: The patient continues to smoke. Occasional alcohol use noted in prior admissions. FAMILY HISTORY: Noncontributory to current presentation. REVIEW OF SYSTEMS: Notable for fatigue, increased shortness of breath, cough, fevers, purulent sputum production. PHYSICAL EXAMINATION: General: Reveals a well developed, well nourished male who appears older than his stated age. He is currently on Levophed. Vital signs: He has been afebrile for the last 24 hours. Blood pressure 94/56, heart rate 74, respiratory rate 24, oxygen saturation 92% on nasal cannula. HEENT: Pupils are equal and reactive. Oropharynx is clear. Neck: Supple. Chest: Coarse rhonchi bilaterally with decreased breath sounds at left base. Cardiac: Irregularly irregular. Normal S1, normal S2. Abdomen: Soft. Extremities: Reveal trace to 1+ peripheral edema. LABORATORIES: Chest x-ray last evening reveals dense infiltrate at the left base with faint infiltrate at the right base. Microbiology is pending. White blood count 26.9 thousand, hemoglobin 14.8 thousand,, platelet count 434,000. Arterial blood gas reveals pH 7.50, pCO2 of 25, pO2 of 67 on 2 L per nasal cannula. Chemistry: Sodium 133, potassium 4.8, chloride 97, bicarb 23, BUN 28, creatinine 1.3. Troponin is negative. IMPRESSION: A 73-year-old with bilateral pneumonia, with grossly purulent sputum production consistent with severe community-acquired pneumonia. The patient has leukocytosis and ongoing hypotension, requiring vasopressors despite volume resuscitation. The patient has septic shock. PLAN: 1. Continue vasopressors. 2. Continue current broad-spectrum antibiotics which include gram-positive and gram-negative organisms. 3. Continue bronchial hygiene. 4. Continue oxygen for acute hypoxemic respiratory failure. 5. Continue ICU monitoring. 6. I agree with review of immunoglobulin status. 7. The patient has nicotine addiction. Recommend smoking cessation. cc: Nick Lewis MD
[2019-01-30] MEDS: MAXIPIME 1 GM in NS 50 ML IV SCH ×2 (01:14→12:00)
[2019-01-30] MEDS: NS 1,000 ML IV SCH (01:14)
[2019-01-30] MEDS: DOXYCYCLINE 100 MG in NS 250 ML IV SCH ×2 (04:51→18:39)
[2019-01-30 05:24] LABS: ALLEN TEST YES; BE -4.7 mmoll (-3.0-3.0); BLOOD TYPE ARTERIAL; HCO3-(ACT) 21.3 mmoll (20.0-26.0); METHB 0.2 % (0.0-1.5); O2(CT) 15.8 mL/dL (15.0-23.0); O2HB 96.4 % (95.0-99.0); PCO2(98.6) 32 mmHg (35-45); PO2(98.6) 79 mmHg (60-100); SAMPLE BLOOD; SAO2 98.3 % (95.0-100.0); THB 11.6 g/dL (11.5-17.4); pH(98.6) 7.39 (7.35-7.45)
[2019-01-30 05:25] LABS: MODALITY CANNULA
[2019-01-30] MEDS: ALBUTEROL NEB INH SCH ×6 (06:10→23:18)
[2019-01-30 06:45] LABS: BASO# 0.02 X1000 (0.0-0.2); BASO% 0.1 % (0.0-0.8); EOS# 0.01 X1000 (0.0-0.7); EOS% 0.1 % (0.0-10.0); HEMATOCRIT 36.5 % (42.0-52.0); HEMOGLOBIN 11.9 g/dL (14.0-18.0); IMM GRAN# 0.06 X1000 (0.0-0.04); IMM GRAN% 0.4 % (0.0-0.5); LYMPH# 3.93 X1000 (1.2-3.4); LYMPH% 23.2 % (20.5-51.1); MCHC 32.6 g/dL (33-37); MCV 95.1 FL (81-99); MONO# 0.44 X1000 (0.11-0.59); MONO% 2.6 % (1.7-9.3); MPV 10.1 FL (7.4-10.4); NEUT# 12.47 X1000 (1.4-6.5); NEUT% 73.6 % (42.2-75.2); PLT 308 X1000 (130-400); RBC 3.84 XMIL (4.7-6.1); RDW 15.4 % (11.5-14.5); WBC 16.93 X1000 (4.8-10.8)
[2019-01-30 07:06] LABS: AGAP 13; ALBUMIN 2.6 g/dL (3.5-5.0); ALKALINE PHOSPHATASE 50 U/L (32-122); BUN 21 mg/dL (8-22); CHLORIDE 105 mmol/L (98-107); COSMO 275; CREATININE 0.9 mg/dL (0.7-1.2); ESTIMATED GFR > 60; GLUCOSE 104 mg/dL (70-104); GOT 14 U/L (10-34); GPT 10 U/L (10-44); MAGNESIUM 1.6 mg/dL (1.5-2.7); PHOSPHORUS 1.9 mg/dL (2.7-4.5); SODIUM 136 mmol/L (136-145); TCO2 18 mmol/L (25-35); TOTAL BILIRUBIN 0.49 mg/dL (0.20-1.00); TOTAL PROTEIN 5.2 g/dL (6.3-8.3)
[2019-01-30 07:08] LABS: CALCIUM 8.5 mg/dL (8.8-10.2)
--- NOTE | 2019-01-30 07:17 | Diag Imaging Result Doc PS360 ---
EXAM: CHEST-PORTABLE 01/30/2019 HISTORY: respiratory failure TECHNIQUE: AP portable at 0539 COMMENT: There is ill-defined opacity in the left lower lobe and to lesser extent in the right base. Considering differences in inspiration and technique this has not changed appreciably since 01/29/2019. There is definitely worse than on 07/08/2018. IMPRESSION: Pulmonary edema and/or pneumonia. Electronically signed by Larry Cardoza 01/30/2019 7:15 AM
[2019-01-30] MEDS: VANCOMYCIN 2,450 MG in NS 500 ML IV SCH (08:13)
[2019-01-30] MEDS: ASPIRIN PO SCH (08:15)
[2019-01-30] MEDS: ELIQUIS PO SCH ×2 (08:16→20:36)
[2019-01-30] MEDS: ZOCOR PO SCH (08:16)
[2019-01-30] MEDS: ALDACTONE PO SCH (08:16)
[2019-01-30] MEDS: NEXIUM PO SCH (08:16)
[2019-01-30] MEDS: LANOXIN PO SCH (08:16)
[2019-01-30] MEDS: TRICOR PO SCH (08:16)
[2019-01-30] MEDS: CARDIZEM LA PO SCH (08:21)
[2019-01-30] MEDS: SPIRIVA INH SCH (08:29)
[2019-01-30] MEDS: PULMICORT INH SCH (08:29)
[2019-01-30] MEDS: BREO ELLIPTA 200/25 MCG INH INH SCH (08:29)
[2019-01-30] MEDS: BROVANA NEB INH SCH (09:21)
[2019-01-30] MEDS ORDERED: GAMUNEX-C 10% IV ONE (12:30)
--- NOTE | 2019-01-30 14:39 | PROGRESS NOTE ---
DATE: 01/30/2019 SUBJECTIVE: Patient has a significant cough. No other major complaints except swelling. OBJECTIVE: Blood pressure 98/54, heart rate of 88, respiratory rate 20, temperature 98 degrees, and 94% on 2.5 L.Cardiovascular: Regular rate and rhythm. Pulmonary: Bilateral breath sounds clear to auscultation. GI: Soft, nontender, and nondistended. Bowel sounds are positive. LABORATORY DATA: White count is 16 down from 26, hemoglobin and hematocrit 11 and 36, platelets 308,000. A pH 7.39, pCO2 32, PaO2 79. Phos is 1.9. TSH is 4.96. Albumin is down to 2.6. His immunoglobulin levels are low. IgG was low at 412 as well as IgA. PROBLEM LIST: 1. Acute respiratory failure due to pneumonia. We will continue to wean O2. He seems to be doing a little bit better. 2. Left lower lobe pneumonia. He is on broad-spectrum antibiotics vancomycin, doxycycline and cefepime. I am going to say probably day 1 as well. Day 2 started yesterday. 3. Atrial fibrillation with rapid ventricular response. His heart rate seems rate controlled. We will continue to monitor. 4. Chronic obstructive pulmonary disease. We will continue breathing treatments and follow closely. DISPOSITION: I think he is stable to go to [facility]. I am going to go ahead and place those orders. We will continue to monitor. cc: Miguel A Hanna MD
[2019-01-30] MEDS: ROBITUSSIN-AC PO PRN ×2 (14:52→20:51)
[2019-01-30] MEDS: LASIX IV SCH (14:52)
[2019-01-30] MEDS ORDERED: BROVANA NEB ONE (18:59)
[2019-01-30] MEDS ORDERED: CALMOSEPTINE OINTMENT TOP PRN (20:47)
--- NOTE | 2019-01-30 23:07 | PULMONOLOGY PROGRESS NOTE ---
DATE: 01/30/2019 SUBJECTIVE: The patient continues to have a cough with purulent sputum production. He overall feels better. His Levophed has been discontinued. OBJECTIVE: Vital Signs: The patient has been afebrile for the last 24 hours. Blood pressure 127/61, heart rate 104, respiratory rate 20, oxygen saturation 99%. HEENT: Pupils are equal and reactive. Oropharynx appears clear. Neck: Supple. Chest: Reveals coarse rhonchi bilaterally. Cardiac: S1, S2. Abdomen: Soft. Extremities: Without edema. LABORATORIES: Chest x-ray reveals persistent infiltrate in the left lung base with minor infiltrates on the right. White blood count 16.9, hemoglobin 11.4, platelet count 308,000. Immunoglobulin levels are significantly reduced. Total IgG is 412. Sputum culture is pending. IMPRESSION: A 73-year-old with 1. Bilateral pneumonia with grossly purulent sputum production. 2. Septic shock with resolving vasopressor requirements. 3. Immunoglobulin deficiency. 4. Nicotine addiction with ongoing tobacco use. PLAN: 1. Wean and discontinue vasopressors. 2. Continue broad-spectrum antibiotics pending results of sputum cultures. 3. Immunoglobulin replacement. I will begin with 20 g of immunoglobulin and we will check a level in the next day or so. 4. Wean oxygen as tolerated. 5. Anticipate transfer to the floor today. 6. Encourage smoking cessation. cc: Nick Lewis MD
[2019-01-31] MEDS: MAXIPIME 1 GM in NS 50 ML IV SCH ×3 (00:16→23:54)
[2019-01-31] MEDS: ROBITUSSIN-AC PO PRN (01:34)
[2019-01-31] MEDS: ALBUTEROL NEB INH SCH ×6 (03:25→23:46)
[2019-01-31 04:49] LABS: ALLEN TEST YES; BE -1.9 mmoll (-3.0-3.0); BLOOD TYPE ARTERIAL; HCO3-(ACT) 23.4 mmoll (20.0-26.0); METHB 1.1 % (0.0-1.5); O2(CT) 17.5 mL/dL (15.0-23.0); O2HB 96.3 % (95.0-99.0); PCO2(98.6) 35 mmHg (35-45); PO2(98.6) 110 mmHg (60-100); SAMPLE BLOOD; SAO2 98.9 % (95.0-100.0); THB 12.8 g/dL (11.5-17.4); pH(98.6) 7.41 (7.35-7.45)
[2019-01-31 04:50] LABS: MODALITY CANNULA
[2019-01-31] MEDS: DOXYCYCLINE 100 MG in NS 250 ML IV SCH ×2 (05:08→16:31)
[2019-01-31 05:56] LABS: BASO# 0.01 X1000 (0.0-0.2); BASO% 0.1 % (0.0-0.8); EOS# 0.05 X1000 (0.0-0.7); EOS% 0.5 % (0.0-10.0); HEMATOCRIT 38.4 % (42.0-52.0); HEMOGLOBIN 12.6 g/dL (14.0-18.0); IMM GRAN# 0.05 X1000 (0.0-0.04); IMM GRAN% 0.5 % (0.0-0.5); LYMPH% 34.2 % (20.5-51.1); MCH 30.9 PG (27-31); MCHC 32.8 g/dL (33-37); MCV 94.1 FL (81-99); MONO% 3.9 % (1.7-9.3); MPV 9.6 FL (7.4-10.4); NEUT# 6.23 X1000 (1.4-6.5); NEUT% 60.8 % (42.2-75.2); PLT 350 X1000 (130-400); RBC 4.08 XMIL (4.7-6.1); WBC 10.24 X1000 (4.8-10.8)
[2019-01-31 06:37] LABS: AGAP 15; BUN 20 mg/dL (8-22); CALCIUM 8.5 mg/dL (8.8-10.2); CHLORIDE 102 mmol/L (98-107); COSMO 277; CREATININE 0.8 mg/dL (0.7-1.2); ESTIMATED GFR > 60; GLUCOSE 100 mg/dL (70-104); POTASSIUM 3.7 mmol/L (3.5-5.1); SODIUM 137 mmol/L (136-145); TCO2 20 mmol/L (25-35)
[2019-01-31] MEDS: PULMICORT INH SCH (07:24)
[2019-01-31] MEDS: BREO ELLIPTA 200/25 MCG INH INH SCH (07:24)
--- NOTE | 2019-01-31 07:55 | Diag Imaging Result Doc PS360 ---
CHEST-PORTABLE - 01/31/2019 INDICATION: respiratory failure COMPARISON: 01/30/2019 FINDINGS: Stable cardiomegaly and pulmonary vascular congestion. Stable subtle interstitial infiltrates bilaterally suggesting pulmonary edema. Stable focal infiltrate in the left lung base. IMPRESSION: Pulmonary edema and/or pneumonia. No change from prior. Electronically signed by Edward Varela 01/31/2019 7:53 AM
[2019-01-31] MEDS: LANOXIN PO SCH (09:05)
[2019-01-31] MEDS: NEXIUM PO SCH (09:05)
[2019-01-31] MEDS: ZOCOR PO SCH (09:06)
[2019-01-31] MEDS: ASPIRIN PO SCH (09:06)
[2019-01-31] MEDS: ELIQUIS PO SCH ×2 (09:06→21:13)
[2019-01-31] MEDS: TRICOR PO SCH (09:06)
[2019-01-31] MEDS: ALDACTONE PO SCH (09:06)
[2019-01-31] MEDS: VANCOMYCIN 2,450 MG in NS 500 ML IV SCH (09:07)
[2019-01-31] MEDS: LASIX IV SCH (09:07)
[2019-01-31] MEDS: CARDIZEM LA PO SCH (09:07)
--- NOTE | 2019-01-31 17:37 | PROGRESS NOTE ---
DATE: 01/31/2019 SUBJECTIVE: The patient is doing well. He is breathing better. He seems to be doing a bit better. OBJECTIVE: Blood pressure 109/62, heart rate 75, respiratory rate 22, temperature was 98.6 degrees, without temperature. His saturations are 96% on 2.5 L, which is his baseline requirement of oxygen. ASSESSMENT AND PLAN: 1. Acute respiratory failure due to pneumonia. He is stable. He is on his regular level of oxygen so we will continue to monitor. 2. Left lower lobe pneumonia. We will continue vancomycin, doxycycline and cefepime. This is day 3. We will continue to follow. 3. Atrial fibrillation with rapid ventricular response. His rate seems rate controlled. He is stable. 4. Chronic obstructive pulmonary disease. He is on breathing treatments. 5. Disposition: I think he is probably getting close to being able to be discharged. We will work on maybe some ambulation. I think he is stable to go to the floor, and anticipate discharge hopefully tomorrow pending recommendations from Pulmonary. cc: Miguel A Hanna MD
[2019-02-01] MEDS: ALBUTEROL NEB INH SCH ×4 (03:30→11:10)
[2019-02-01] MEDS: DOXYCYCLINE 100 MG in NS 250 ML IV SCH (06:35)
[2019-02-01] MEDS: BREO ELLIPTA 200/25 MCG INH INH SCH (07:58)
[2019-02-01] MEDS: PULMICORT INH SCH (07:58)
--- NOTE | 2019-02-01 08:00 | Diag Imaging Result Doc PS360 ---
EXAM: CHEST-2 VIEWS - 02/01/2019 HISTORY: abnormal exam TECHNIQUE: Chest two views COMPARISON: 01/31/2019 portable chest FINDINGS: Heart size appears the upper range of normal. There is mild prominence of central vascular markings which is decreased. There is infiltrate at the left base which appears of decreased. There is persistent small left pleural effusion. There is a tiny right pleural effusion. There is no pneumothorax identified. IMPRESSION: Some improvement in pulmonary edema and/or left basilar pneumonia compared to prior. Electronically signed by Cayetaon De La Rosa 02/01/2019 7:57 AM
--- NOTE | 2019-02-01 08:00 | PULMONOLOGY PROGRESS NOTE ---
DATE: 01/31/2019 SUBJECTIVE: The patient is awake and alert. He has been transferred to the floor. He reports his sputum production has diminished. OBJECTIVE: Vital Signs: The patient has been afebrile for the last 24 hours. Blood pressure 108/51, heart rate 88, respiratory rate 16, oxygen saturation 96% on 2 L. HEENT: Pupils are equal and reactive. Oropharynx appears clear. Neck is supple. Chest reveals occasional rhonchi bilaterally with decreased breath sounds in the left base. Cardiac Examination: S1, S2. Abdomen is obese and soft. Extremities: Reveal 1+ peripheral edema. Laboratories: Chest x-ray is unchanged. Microbiology reveals no new data. IMPRESSION: A 73-year-old with: 1. Bilateral pneumonia. 2. Septic shock, which has resolved. 3. Immunoglobulin deficiency, status post immunoglobulin replacement. 4. Nicotine addiction with ongoing tobacco use. RECOMMENDATIONS: 1. Continue bronchial hygiene. 2. Recheck immunoglobulin level given severe reduction at presentation. 3. Continue bronchial hygiene. 4. Wean oxygen as tolerated. 5. Encourage smoking cessation. cc: Nick Lewis MD
[2019-02-01] MEDS: VANCOMYCIN 2,450 MG in NS 500 ML IV SCH (09:14)
[2019-02-01] MEDS: NEXIUM PO SCH (09:18)
[2019-02-01] MEDS: CARDIZEM LA PO SCH (09:18)
[2019-02-01] MEDS: LASIX IV SCH (09:18)
[2019-02-01] MEDS: ZOCOR PO SCH (09:19)
[2019-02-01] MEDS: ELIQUIS PO SCH (09:19)
[2019-02-01] MEDS: ALDACTONE PO SCH (09:19)
[2019-02-01] MEDS: ASPIRIN PO SCH (09:19)
[2019-02-01] MEDS: TRICOR PO SCH (09:19)
[2019-02-01] MEDS: LANOXIN PO SCH (09:20)
[2019-02-01 11:46] VITALS: BP 106/49
[2019-02-01] MEDS: MAXIPIME 1 GM in NS 50 ML IV SCH (14:23)
--- NOTE | 2019-02-02 13:02 | DISCHARGE SUMMARY ---
ADMISSION DATE: 01/29/2019 DISCHARGE DATE: 02/01/2019 CONSULTATIONS: Dr. Nick Lewis with Pulmonology. PERTINENT PROCEDURE: Initial chest x-ray, bilateral bibasilar infiltrates compatible with pneumonia. DISCHARGE DIAGNOSES: 1. Acute respiratory failure secondary to pneumonia, improved back down to his home O2 level. 2. Left lower lobe pneumonia. He has been on vancomycin, doxycycline and cefepime, is being discharged on cefuroxime and doxycycline. 3. Atrial fibrillation with rapid ventricular response, now rate controlled. 4. Chronic obstructive pulmonary disease. Continue home breathing treatment. 5. Hypotension, resolved. HOSPITAL COURSE: Briefly, Mr. Kowalski is a 73-year-old gentleman with a past medical history of atrial fibrillation, COPD on home O2, hypertension, and hyperlipidemia, who continues to smoke only 1 to 2 cigarettes per day, who was initially treated at [facility] and found to have a large left lower lobe pneumonia, treated for sepsis and was transferred to [facility] ICU and treated with broad-spectrum antibiotics, bronchodilators, supplemental O2 as well as medications to control his atrial fibrillation with RVR. Pulmonology was consulted as well who initiated him on immunoglobulin. Mr. Kowalski's acute respiratory distress, sepsis and hypotension resolved. He was able to move to the floor where he continued to improve. He has been weaned back down to his home O2 level and will be discharged home today to continue with full course of p.o. antibiotics. VITAL SIGNS: At time of his discharge, temperature is 98 degrees, heart rate 103, respirations 18, blood pressure 106/49, O2 is 95% on 2 L nasal cannula. DISCHARGE DIET: Regular. DISCHARGE MEDICATIONS: 1. Albuterol sulfate 2.5 g inhaled b.i.d. 2. Aspirin 81 mg p.o. daily. 3. Breo Ellipta 200 mcg inhaled daily. 4. Brovana nebulizer 15 mcg inhaled q.12 hours. 5. Budesonide 0.5 mg inhaled daily. 6. Digoxin 125 mcg p.o. in the morning. 7. Diltiazem 360 mg p.o. daily. 8. Apixaban 5 mg p.o. b.i.d. 9. Fenofibrate 160 mg p.o. daily. 10. Lasix 40 mg p.o. daily. 11. Lopressor 50 mg p.o. daily. 12. Losartan potassium 100 mg p.o. daily. 13. Nexium 40 mg p.o. daily. 14. Simvastatin 40 mg p.o. daily. 15. Spiriva 18 mcg inhaled daily. 16. Spironolactone 25 mg p.o. daily. 17. Albuterol sulfate 90 mcg inhaled daily. 18. Cefuroxime 500 mg p.o. q.12 hours for 20 tablets. 19. Doxycycline 100 mg p.o. q.12 hours x20 tablets. 20. Lasix 40 mg p.o. daily for 30 tablets. 21. [place] 7.5 one each p.o. q.6 hours p.r.n. for 20 tablets. 22. Robitussin DM 10 mL p.o. q.4 hours p.r.n. x1 bottle. FOLLOW-UP: Mr. Kowalski is being discharged back home with self care and his home health and home O2. He is to follow up with Dr. Lewis as well as his primary care provider, Dr. Ja Chan. He is to take all medications as prescribed and he can return to the ED or call 911 for any worsening of symptoms. Dictated by HUMAIRA Martel for Patrice Cordero MD Addendum: Patient seen and examined by myself. Agree with HUMAIRA note. It reflects my assessment and plan. Patient is being discharged from hospital in stable condition. Will be seen by PCP in a week. cc: MD Ja Pitt, DO KEVIND
== END 2019-02-01 14:26 | disposition home health service (06) | DRG 871 ==
LOC: P.ED 23:17 → ICU 01-29 02:44 → SUATTDRO 01-29 02:44 → 2N 01-30 16:52 → 3N 01-31 18:44
PROVIDERS: ATTEND Internal Medicine